=== PATIENT | female | born 1960 | race Caucasian/White ===

== ENCOUNTER 2016-11-28 12:34 | Emergency (ER) | payer BC, MEDICARE, OTHER ==
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
--- NOTE | 2016-11-28 13:46 | RAD ---
INDICATION: Left shoulder injury. TECHNIQUE: 4 views of the left shoulder were obtained. FINDINGS: The bones are in normal alignment. No fracture is seen. Joint spaces appear maintained. IMPRESSION: NO EVIDENCE OF FRACTURE.
[2016-11-28 14:13] VITALS: BP 148/79
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
== END 2016-11-28 14:11 | disposition home or self-care (01) ==
LOC: ED 12:34
DX: S09.90XA Unspecified injury of head, initial encounter (principal); S40.012A Contusion of left shoulder, initial encounter; V43.53XA Car driver injured in collision with pick-up truck in traffic accident, initial encounter; Y92.481 Parking lot as the place of occurrence of the external cause; I10 Essential (primary) hypertension; E07.9 Disorder of thyroid, unspecified; F17.200 Nicotine dependence, unspecified, uncomplicated
CPT/HCPCS: 70450; 72125; 99282